=== PATIENT | male | born 1990 | race Caucasian/White ===

== ENCOUNTER 2021-04-02 01:20 | Emergency (ER) | payer SELFPAY ==
[~2021-04-02] VITALS: Ht 162.6 cm; Wt 61.4 kg
[2021-04-02 01:28] VITALS: TEMP 97.2
[2021-04-02 02:25] VITALS: BP 131/78; PULSE 72
== END 2021-04-02 02:33 | disposition home or self-care (01) ==
LOC: COL.ER 01:20
DX: S06.0X0A Concussion without loss of consciousness, initial encounter (principal); H11.32 Conjunctival hemorrhage, left eye; S00.31XA Abrasion of nose, initial encounter; S40.011A Contusion of right shoulder, initial encounter; S60.222A Contusion of left hand, initial encounter; S60.221A Contusion of right hand, initial encounter; S90.32XA Contusion of left foot, initial encounter; S90.31XA Contusion of right foot, initial encounter; Y04.2XXA Assault by strike against or bumped into by another person, initial encounter